=== PATIENT | female | born 1940 | race Caucasian/White ===

== ENCOUNTER 2021-08-17 08:15 | Emergency (ER) | payer MEDICARE, OTHER ==
[2021-08-17] MEDS: Albuterol/Ipratropium 3.0-0.5 MG/3 ML Neb Soln NEB ONE (08:31)
[2021-08-17 08:43] LABS: BASE EXCESS ARTERIAL 2.9 (-2.0-3.0); BICARBONATE,ARTERIAL 23.8 mm/L (22.0-26.0); O2 DELIVERY DEVICE NASAL CANNULA; O2 SATURATION ARTERIAL 87 % (95-98); PCO2 ARTERIAL 51 mm/Hg0 (35-45); PO2 ARTERIAL 60 mm/Hg (80-100)
[2021-08-17] MEDS ORDERED: Sodium Chloride 0.9% 10 ML Syringe FLUSH PRN (09:18)
[2021-08-17] MEDS: Furosemide 40 MG/4 ML VIAL IVPUSH ONE (09:28)
== END 2021-08-17 10:30 ==
LOC: CC.ED 08:15
DX: J44.9 Chronic obstructive pulmonary disease, unspecified (principal); I50.9 Heart failure, unspecified; Z20.822 Contact with and (suspected) exposure to COVID-19; Z72.0 Tobacco use; Z79.01 Long term (current) use of anticoagulants; Z79.899 Other long term (current) drug therapy; Z79.82 Long term (current) use of aspirin
CPT/HCPCS: 36415; 36600; 71045; 80053; 82803; 83605; 83735; 83880; 84484; 85025; 85379; 85610; 93005; 93010; 94640; 96374; 99284; 99285-25; J1940; J7620-GY; U0002

== ENCOUNTER 2022-05-30 19:15 | Inpatient (IN) | payer MEDICARE, OTHER ==
[2022-05-30] MEDS ORDERED: Sodium Chloride 0.9% 10 ML Syringe FLUSH PRN (19:31)
[2022-05-30] MEDS ORDERED: Albuterol/Ipratropium 3.0-0.5 MG/3 ML Neb Soln NEB ONE (19:40)
[2022-05-30 20:14] LABS: CHLORIDE,CL 104 mEq/L (98-106); SODIUM,NA 138 mEq/L (136-145)
[2022-05-30 20:17] LABS: ESTIMATED GFR 32 mL/min (>=60)
[2022-05-30] MEDS ORDERED: Ondansetron 4 MG/2 ML SDV IV PRN (21:30)
[2022-05-30] MEDS ORDERED: Acetaminophen 325 MG Tab PO PRN (21:30)
[2022-05-30] MEDS ORDERED: Warfarin 5 MG Tab PO ONE (21:34)
[2022-05-30] MEDS: cefTRIAXone 1 GM Vial IVPUSH SCH (22:02)
[2022-05-30] MEDS: Sodium Chloride 0.9% 1,000 ML IV SCH (22:04)
[2022-05-30] MEDS: Azithromycin 500 MG in Sodium Chloride 0.9% 250 ML IV SCH (22:06)
[2022-05-31] MEDS: Albuterol/Ipratropium 3.0-0.5 MG/3 ML Neb Soln NEB PRN ×4 (01:00→20:50)
[2022-05-31] MEDS ORDERED: guaiFENesin 100 MG/5 ML Soln 5 ML UD Cup PO ONE (02:44)
[2022-05-31] MEDS: guaiFENesin 200 MG Tab PO SCH ×3 (07:40→19:29)
[2022-05-31] MEDS ORDERED: Diltiazem 120 MG Cap.CD PO SCH (10:45)
[2022-05-31] MEDS ORDERED: methylPREDNISolone Sodium Succinate 125 MG/2 ML SDV IVPUSH ONE (10:51)
[2022-05-31] MEDS ORDERED: Calcium Carbonate 500 MG Tab.Chew PO ONE ×2 (10:52→11:30)
[2022-05-31] MEDS: Topiramate 100 MG Tab PO SCH ×2 (11:04→19:29)
[2022-05-31] MEDS: Torsemide 20 MG Tab PO SCH (11:05)
[2022-05-31] MEDS: Multivitamins with Iron/Calcium/Folic Acid/Minerals Tab PO SCH (11:05)
[2022-05-31] MEDS: Isosorbide Mononitrate 30 MG Tab.ER PO SCH (11:08)
[2022-05-31] MEDS: Aspirin 81 MG Tab.EC PO SCH (11:11)
[2022-05-31] MEDS: atorvaSTATin 20 MG Tab PO SCH (11:11)
[2022-05-31] MEDS: Sodium Bicarbonate 650 MG Tab PO SCH ×2 (13:30→19:29)
[2022-05-31] MEDS: BIOTIN 5000 MCG PO SCH (16:10)
[2022-05-31] MEDS: PROPRANOLOL 80 MG PO SCH ×2 (16:11→21:13)
[2022-05-31] MEDS: Sodium Chloride 0.9% 1,000 ML IV SCH (18:03)
[2022-05-31] MEDS: Primidone 50 MG Tab PO SCH (19:29)
[2022-05-31] MEDS: cefTRIAXone 1 GM Vial IVPUSH SCH (20:48)
[2022-05-31] MEDS: Azithromycin 500 MG in Sodium Chloride 0.9% 250 ML IV SCH (20:48)
[2022-05-31] MEDS: Diltiazem IR 30 MG Tab PO PRN ×2 (21:59→23:01)
[2022-06-01] MEDS: Diltiazem IR 30 MG Tab PO PRN (00:15)
[2022-06-01] MEDS: BIOTIN 5000 MCG PO SCH (07:55)
[2022-06-01] MEDS: Topiramate 100 MG Tab PO SCH ×2 (07:56→20:36)
[2022-06-01] MEDS: Diltiazem 180 MG Cap.CD PO SCH (07:56)
[2022-06-01] MEDS: Primidone 50 MG Tab PO SCH ×2 (07:57→20:31)
[2022-06-01] MEDS: Torsemide 20 MG Tab PO SCH (07:58)
[2022-06-01] MEDS: guaiFENesin 200 MG Tab PO SCH ×3 (07:58→20:31)
[2022-06-01] MEDS: Isosorbide Mononitrate 30 MG Tab.ER PO SCH (07:58)
[2022-06-01] MEDS: Aspirin 81 MG Tab.EC PO SCH (07:59)
[2022-06-01] MEDS: atorvaSTATin 20 MG Tab PO SCH (07:59)
[2022-06-01] MEDS: Albuterol/Ipratropium 3.0-0.5 MG/3 ML Neb Soln NEB PRN ×3 (07:59→21:59)
[2022-06-01] MEDS: Multivitamins with Iron/Calcium/Folic Acid/Minerals Tab PO SCH (07:59)
[2022-06-01] MEDS: Sodium Bicarbonate 650 MG Tab PO SCH ×3 (08:00→20:36)
[2022-06-01] MEDS: PROPRANOLOL 80 MG PO SCH ×3 (08:00→20:42)
[2022-06-01] MEDS ORDERED: Calcium Carbonate 500 MG Tab.Chew PO ONE (10:54)
[2022-06-01] MEDS: Warfarin 5 MG Tab PO SCH (11:41)
[2022-06-01] MEDS: Sodium Chloride 0.9% 1,000 ML IV SCH (15:50)
[2022-06-01] MEDS ORDERED: cefTRIAXone 1 GM Vial IVPUSH SCH (20:00)
[2022-06-01] MEDS ORDERED: Azithromycin 500 MG in Sodium Chloride 0.9% 250 ML IV SCH (20:00)
[2022-06-02] MEDS: Albuterol/Ipratropium 3.0-0.5 MG/3 ML Neb Soln NEB PRN (08:13)
[2022-06-02] MEDS: Primidone 50 MG Tab PO SCH ×2 (08:14→19:28)
[2022-06-02] MEDS: Topiramate 100 MG Tab PO SCH ×2 (08:15→19:28)
[2022-06-02] MEDS: Diltiazem 180 MG Cap.CD PO SCH (08:15)
[2022-06-02] MEDS: Aspirin 81 MG Tab.EC PO SCH (08:15)
[2022-06-02] MEDS: Multivitamins with Iron/Calcium/Folic Acid/Minerals Tab PO SCH (08:16)
[2022-06-02] MEDS: Torsemide 20 MG Tab PO SCH (08:16)
[2022-06-02] MEDS: Isosorbide Mononitrate 30 MG Tab.ER PO SCH (08:16)
[2022-06-02] MEDS: Sodium Bicarbonate 650 MG Tab PO SCH ×3 (08:17→19:27)
[2022-06-02] MEDS: atorvaSTATin 20 MG Tab PO SCH (08:17)
[2022-06-02] MEDS: guaiFENesin 200 MG Tab PO SCH ×3 (08:17→19:27)
[2022-06-02] MEDS: PROPRANOLOL 80 MG PO SCH ×3 (08:19→19:30)
[2022-06-02] MEDS: BIOTIN 5000 MCG PO SCH (08:19)
[2022-06-02] MEDS ORDERED: Loperamide 2 MG Cap PO ONE (11:05)
[2022-06-02] MEDS: Warfarin 5 MG Tab PO SCH (11:46)
[2022-06-03] MEDS: Primidone 50 MG Tab PO SCH ×2 (07:57→20:03)
[2022-06-03] MEDS: Topiramate 100 MG Tab PO SCH ×2 (07:58→20:03)
[2022-06-03] MEDS: atorvaSTATin 20 MG Tab PO SCH (07:59)
[2022-06-03] MEDS: Sodium Bicarbonate 650 MG Tab PO SCH ×3 (07:59→20:03)
[2022-06-03] MEDS: guaiFENesin 200 MG Tab PO SCH (07:59)
[2022-06-03] MEDS: Aspirin 81 MG Tab.EC PO SCH (07:59)
[2022-06-03] MEDS: Isosorbide Mononitrate 30 MG Tab.ER PO SCH (08:00)
[2022-06-03] MEDS: Torsemide 20 MG Tab PO SCH (08:01)
[2022-06-03] MEDS: Diltiazem 180 MG Cap.CD PO SCH (08:01)
[2022-06-03] MEDS: PROPRANOLOL 80 MG PO SCH ×3 (08:02→20:11)
[2022-06-03] MEDS: Multivitamins with Iron/Calcium/Folic Acid/Minerals Tab PO SCH (08:02)
[2022-06-03] MEDS: BIOTIN 5000 MCG PO SCH (08:07)
[2022-06-03] MEDS ORDERED: Loperamide 2 MG Cap PO PRN (09:55)
[2022-06-03] MEDS: Warfarin 5 MG Tab PO SCH (11:34)
[2022-06-03] MEDS ORDERED: Furosemide 20 MG/2 ML VIAL IVPUSH ONE (13:29)
[2022-06-03] MEDS: guaiFENesin/Dextromethorphan 100-10 MG/5 ML Soln 5 ML Cup PO PRN ×2 (13:35→20:16)
[2022-06-04] MEDS: Primidone 50 MG Tab PO SCH ×2 (07:17→19:46)
[2022-06-04] MEDS: Torsemide 20 MG Tab PO SCH (07:18)
[2022-06-04] MEDS: Multivitamins with Iron/Calcium/Folic Acid/Minerals Tab PO SCH (07:19)
[2022-06-04] MEDS: Sodium Bicarbonate 650 MG Tab PO SCH ×3 (07:19→19:45)
[2022-06-04] MEDS: Diltiazem 180 MG Cap.CD PO SCH (07:19)
[2022-06-04] MEDS: atorvaSTATin 20 MG Tab PO SCH (07:19)
[2022-06-04] MEDS: Topiramate 100 MG Tab PO SCH ×2 (07:19→19:46)
[2022-06-04] MEDS: Isosorbide Mononitrate 30 MG Tab.ER PO SCH (07:20)
[2022-06-04] MEDS: Aspirin 81 MG Tab.EC PO SCH (07:20)
[2022-06-04] MEDS: BIOTIN 5000 MCG PO SCH (07:28)
[2022-06-04] MEDS: PROPRANOLOL 80 MG PO SCH ×3 (07:28→19:50)
[2022-06-04] MEDS: Warfarin 5 MG Tab PO SCH (11:37)
[2022-06-04] MEDS ORDERED: Furosemide 20 MG/2 ML VIAL IVPUSH ONE (13:09)
[2022-06-04] MEDS: Diltiazem IR 30 MG Tab PO PRN (19:46)
[2022-06-05] MEDS: Primidone 50 MG Tab PO SCH (07:58)
[2022-06-05] MEDS: Torsemide 20 MG Tab PO SCH (07:58)
[2022-06-05] MEDS: Topiramate 100 MG Tab PO SCH (08:00)
[2022-06-05] MEDS: Multivitamins with Iron/Calcium/Folic Acid/Minerals Tab PO SCH (08:00)
[2022-06-05] MEDS: Diltiazem 180 MG Cap.CD PO SCH (08:01)
[2022-06-05] MEDS: Sodium Bicarbonate 650 MG Tab PO SCH ×2 (08:03→14:09)
[2022-06-05] MEDS: atorvaSTATin 20 MG Tab PO SCH (08:03)
[2022-06-05] MEDS: Aspirin 81 MG Tab.EC PO SCH (08:03)
[2022-06-05] MEDS: Isosorbide Mononitrate 30 MG Tab.ER PO SCH (08:04)
[2022-06-05] MEDS: PROPRANOLOL 80 MG PO SCH ×2 (08:05→14:11)
[2022-06-05] MEDS: BIOTIN 5000 MCG PO SCH (08:06)
[2022-06-05] MEDS: Warfarin 5 MG Tab PO SCH (11:26)
== END 2022-06-05 15:45 | disposition home or self-care (01) | DRG 292 ==
LOC: CC.ED 19:15 → CC.MS 20:34 → UNDOADMIN 20:45 → CC.MS 20:45
PROVIDERS: ADMIT Nurse Practitioner Family; ATTEND Nurse Practitioner Family
DX: I13.0 Hypertensive heart and chronic kidney disease with heart failure and stage 1 through stage 4 chronic kidney disease, or unspecified chronic kidney disease (principal); I50.1 Left ventricular failure, unspecified; N18.4 Chronic kidney disease, stage 4 (severe); J44.1 Chronic obstructive pulmonary disease with (acute) exacerbation; I49.8 Other specified cardiac arrhythmias; R09.02 Hypoxemia; Z20.822 Contact with and (suspected) exposure to COVID-19; H54.7 Unspecified visual loss; M19.90 Unspecified osteoarthritis, unspecified site; R00.0 Tachycardia, unspecified; E11.9 Type 2 diabetes mellitus without complications; I10 Essential (primary) hypertension; F17.210 Nicotine dependence, cigarettes, uncomplicated; E78.00 Pure hypercholesterolemia, unspecified; K52.9 Noninfective gastroenteritis and colitis, unspecified; Z79.01 Long term (current) use of anticoagulants; Z79.84 Long term (current) use of oral hypoglycemic drugs; Z87.440 Personal history of urinary (tract) infections; Z98.890 Other specified postprocedural states; Z98.49 Cataract extraction status, unspecified eye; Z79.82 Long term (current) use of aspirin; Z79.899 Other long term (current) drug therapy; Z95.0 Presence of cardiac pacemaker; Z87.442 Personal history of urinary calculi
CPT/HCPCS: 36415; 71045; 71046; 80053; 82947; 83605; 83735; 83880; 84484; 85025; 85610; 87804; 93005; 93010; 94640; 99223; 99232; 99233; 99239; 99285; A9270-GY; J0456; J0696; J1940; J2930; J7030; J7050; J7620-GY; U0002

== ENCOUNTER 2022-09-13 20:35 | Emergency (ER) | payer MEDICARE, OTHER ==
[2022-09-13] MEDS: Albuterol/Ipratropium 3.0-0.5 MG/3 ML Neb Soln NEB ONE ×3 (20:56→22:15)
[2022-09-13 21:29] LABS: CORONAVIRUS COVID-19 NAA NEGATIVE (NEGATIVE); RESPIRATORY SYNCYTIAL VIR NAA NEGATIVE (NEGATIVE)
[2022-09-13 21:46] LABS: PTT,PARTIAL THROMBOPLSTIN TIME 30.6 SEC (20.0-30.0)
[2022-09-13] MEDS: LORazepam 2 MG/ML Syringe IVPUSH PRN (22:00)
[2022-09-13] MEDS ORDERED: Albuterol/Ipratropium 3.0-0.5 MG/3 ML Neb Soln ONE (22:15)
[2022-09-13] MEDS: Furosemide 40 MG/4 ML VIAL IVPUSH ONE (22:45)
[2022-09-13] MEDS ORDERED: Nitroglycerin 0.4 MG Tab.SL SL PRN (22:54)
[2022-09-13] MEDS: Budesonide 0.5 MG/2 ML Neb Susp NEB ONE (23:07)
[2022-09-13] MEDS: methylPREDNISolone Sodium Succinate 40 MG/1 ML SDV IVPUSH ONE (23:14)
[2022-09-13] MEDS: hydrALAZINE 20 MG/ML SDV IVPUSH ONE (23:14)
[2022-09-13] MEDS ORDERED: Sodium Chloride 0.9% 500 ML IV SCH (23:45)
[2022-09-15] MEDS: methylPREDNISolone Sodium Succinate 40 MG/1 ML SDV ONE (13:03)
== END 2022-09-14 00:35 ==
LOC: CC.ED 20:35
DX: J96.01 Acute respiratory failure with hypoxia (principal); J44.1 Chronic obstructive pulmonary disease with (acute) exacerbation; I11.0 Hypertensive heart disease with heart failure; I50.9 Heart failure, unspecified; E78.00 Pure hypercholesterolemia, unspecified; M19.90 Unspecified osteoarthritis, unspecified site; E11.9 Type 2 diabetes mellitus without complications; F17.210 Nicotine dependence, cigarettes, uncomplicated; Z79.899 Other long term (current) drug therapy; Z79.01 Long term (current) use of anticoagulants; Z20.822 Contact with and (suspected) exposure to COVID-19
CPT/HCPCS: 0241U; 36415; 51702; 70450; 71046; 80053; 81001; 84484; 85025; 85610; 85730; 93005; 93010; 94640; 96374; 96375; 99284; 99285; J0360; J1940; J2060; J2920; J3490; J7620-GY

== ENCOUNTER 2023-02-26 07:29 | Inpatient (IN) | payer MEDICARE, OTHER ==
[2023-02-26 07:47] LABS: BASOPHILS ABSOLUTE AUTO 0.05 10^3/uL (0.00-0.50); BASOPHILS PERCENT AUTO 0.5 % (0-1); EOSINOPHILS ABSOLUTE AUTO 0.14 10^3/uL (0.00-1.50); EOSINOPHILS PERCENT AUTO 1.5 % (0-6); HEMATOCRIT 39.9 % (37.0-47.0); HEMOGLOBIN 12.9 g/dL (12.0-16.0); IMMATURE GRAN ABSOLUTE AUTO 0.01 10^3/uL (0.00-0.49); IMMATURE GRAN PERCENT AUTO 0.1 % (0.0-4.9); LYMPHOCYTES ABSOLUTE AUTO 2.09 10^3/uL (0.60-5.00); LYMPHOCYTES PERCENT AUTO 21.7 % (24-44); MEAN CORPUSCULAR HEMOGLOBIN 31.9 pg (27.0-32.0); MEAN CORPUSCULAR HGB CONC 32.3 g/dL (32.0-36.0); MEAN CORPUSCULAR VOLUME 98.8 fL (83.0-97.0); MONOCYTES ABSOLUTE AUTO 1.12 10^3/uL (0.00-1.50); MONOCYTES PERCENT AUTO 11.6 % (0-10); NEUTROPHILS ABSOLUTE AUTO 6.24 x10^3/uL (1.80-8.00); NEUTROPHILS PERCENT AUTO 64.6 % (41-71); PLATELET COUNT,PLT 116 10^3/uL (150-400); RED BLOOD CELL COUNT 4.04 x10^6/uL (4.00-5.50); WHITE BLOOD CELL COUNT,WBC 9.7 10^3/uL (4.0-11.0)
[2023-02-26 07:57] LABS: APPEARANCE,URINE CLEAR (CLEAR); BILIRUBIN,URINE NEGATIVE (NEGATIVE); COLOR,URINE YELLOW (YELLOW); GLUCOSE,URINE NEGATIVE (NEGATIVE); KETONES,URINE NEGATIVE (NEGATIVE); LEUKOCYTE ESTERASE,URINE SMALL (NEGATIVE); NITRITE,URINE NEGATIVE (NEGATIVE); OCCULT BLOOD,URINE NEGATIVE (NEGATIVE); PH,URINE 7.5 (4.5-8.0); PROTEIN,URINE NEGATIVE (NEGATIVE); UROBILINOGEN,URINE 0.2 EU/dL (0.2-1.0)
[2023-02-26 08:01] LABS: HEMOGLOBIN A1C 7.3 % (4.8-5.6)
[2023-02-26 08:12] LABS: BACTERIA,URINE OCCASIONAL /HPF (NOT SEEN); RBC,URINE 0-5 /HPF (0-5); SQUAMOUS EPITHELIAL CELLS,UR FEW /HPF (NOT SEEN); WBC,URINE 0-5 /HPF (0-5); YEAST,URINE OCCASIONAL /HPF (NOT SEEN)
[2023-02-26 08:28] LABS: ALANINE AMINOTRANSFERASE,ALT 51 U/L (12-78); ALBUMIN 3.4 g/dL (3.4-5.0); ALKALINE PHOSPHATASE 106 U/L (46-116); ASPARTATE AMNIOTRANSFERASE,AST 30 U/L (15-37); BILIRUBIN TOTAL 0.3 mg/dL (0.0-1.0); BLOOD UREA NITROGEN,BUN 62 mg/dL (7-18); CALCIUM 9.5 mg/dL (8.4-10.1); CARBON DIOXIDE,CO2 31 mmol/L (21-32); CHLORIDE,CL 98 mEq/L (98-106); CHOLESTEROL HDL 65 mg/dL (60-90); CHOLESTEROL LDL CALCULATED 99 mg/dL (0-99); CHOLESTEROL TOTAL 197 mg/dL (0-199); GLUCOSE RANDOM 113 mg/dL (75-99); POTASSIUM,K 5.3 mEq/L (3.5-5.0); PROTEIN TOTAL,TP 8.2 g/dL (6.4-8.2); SODIUM,NA 137 mEq/L (136-145); TRIGLYCERIDES 164 mg/dL (30-150); TSH ULTRASENSITIVE 1.96 uIU/mL (0.36-5.60)
[2023-02-26 08:30] LABS: CREATININE 3.7 mg/dL (0.6-1.0); ESTIMATED GFR 12 mL/min (>=60)
[2023-02-26] MEDS ORDERED: Sodium Chloride 0.9% 10 ML Syringe FLUSH PRN (11:20)
[2023-02-26] MEDS ORDERED: Ondansetron 4 MG Tab.DIS PO PRN (11:20)
[2023-02-26] MEDS ORDERED: Polyethylene Glycol 3350 Powder 17 GM Packet PO PRN (11:20)
[2023-02-26] MEDS ORDERED: Docusate Sodium 100 MG Cap PO PRN (11:20)
[2023-02-26] MEDS ORDERED: Acetaminophen 325 MG Tab PO PRN (11:20)
[2023-02-26] MEDS ORDERED: Ondansetron 4 MG/2 ML SDV IV PRN (11:20)
[2023-02-26] MEDS ORDERED: Albuterol 6.7 GM Inhaler INH PRN (11:26)
[2023-02-26] MEDS ORDERED: Diltiazem IR 30 MG Tab PO PRN (11:26)
[2023-02-26 11:53] LABS: INR 2.36 (0.92-1.18); PROTHROMBIN TIME 23.7 SEC (9.3-11.3)
[2023-02-26] MEDS ORDERED: 50% Dextrose in Water 50 ML Syringe IVPUSH PRN (13:00)
[2023-02-26] MEDS ORDERED: Glucagon,Human Recombinant 1 MG Vial IM PRN (13:00)
[2023-02-26] MEDS: Isosorbide Mononitrate 30 MG Tab.ER PO SCH (13:03)
[2023-02-26] MEDS: Warfarin 5 MG Tab PO SCH (13:03)
[2023-02-26] MEDS: Topiramate 100 MG Tab PO SCH ×2 (13:04→19:38)
[2023-02-26] MEDS: Diltiazem 180 MG Cap.CD PO SCH (13:04)
[2023-02-26] MEDS: Sodium Chloride 0.9% 1,000 ML IV SCH (13:06)
[2023-02-26] MEDS ORDERED: Oxyquinoline/Emollient 0.3% Oint 4 OZ Canister TOP PRN (13:21)
[2023-02-26] MEDS: Sodium Bicarbonate 650 MG Tab PO SCH ×2 (14:08→19:37)
[2023-02-26] MEDS: Propranolol 10 MG Tab PO SCH ×2 (14:08→19:37)
[2023-02-26] MEDS: Insulin Lispro 100 Units/ML 3 ML Vial SUBCUT SCH ×2 (17:30→20:55)
[2023-02-26] MEDS: Calcium Carbonate/Vitamin D3 1250 MG-5 MCG Tab PO SCH (17:30)
[2023-02-26] MEDS: Primidone 50 MG Tab PO SCH (19:38)
[2023-02-27 07:19] LABS: BASOPHILS ABSOLUTE AUTO 0.06 10^3/uL (0.00-0.50); BASOPHILS PERCENT AUTO 0.7 % (0-1); EOSINOPHILS ABSOLUTE AUTO 0.11 10^3/uL (0.00-1.50); EOSINOPHILS PERCENT AUTO 1.4 % (0-6); HEMATOCRIT 36.2 % (37.0-47.0); HEMOGLOBIN 11.7 g/dL (12.0-16.0); IMMATURE GRAN ABSOLUTE AUTO 0.01 10^3/uL (0.00-0.49); IMMATURE GRAN PERCENT AUTO 0.1 % (0.0-4.9); LYMPHOCYTES ABSOLUTE AUTO 1.55 10^3/uL (0.60-5.00); LYMPHOCYTES PERCENT AUTO 19.2 % (24-44); MEAN CORPUSCULAR HEMOGLOBIN 32.4 pg (27.0-32.0); MEAN CORPUSCULAR HGB CONC 32.3 g/dL (32.0-36.0); MEAN CORPUSCULAR VOLUME 100.3 fL (83.0-97.0); MONOCYTES ABSOLUTE AUTO 1.08 10^3/uL (0.00-1.50); MONOCYTES PERCENT AUTO 13.4 % (0-10); NEUTROPHILS ABSOLUTE AUTO 5.25 x10^3/uL (1.80-8.00); NEUTROPHILS PERCENT AUTO 65.2 % (41-71); PLATELET COUNT,PLT 172 10^3/uL (150-400); RED BLOOD CELL COUNT 3.61 x10^6/uL (4.00-5.50); WHITE BLOOD CELL COUNT,WBC 8.1 10^3/uL (4.0-11.0)
[2023-02-27 07:25] LABS: CREATININE 2.5 mg/dL (0.6-1.0); EST CRCL DRUG DOSING (CG) 13.32 mL/min; MAGNESIUM 2.4 mg/dL (1.8-2.4); POTASSIUM,K 4.5 mEq/L (3.5-5.0)
[2023-02-27] MEDS: Sodium Chloride 0.9% 1,000 ML IV SCH (07:51)
[2023-02-27] MEDS ORDERED: BIOTIN 1000 MCG PO SCH (08:00)
[2023-02-27] MEDS ORDERED: TOPIRAMATE 50 MG PO SCH (08:00)
[2023-02-27] MEDS ORDERED: [UNRECOGNIZED DRUG - OTHER] PO SCH (08:00)
[2023-02-27] MEDS: Calcium Carbonate/Vitamin D3 1250 MG-5 MCG Tab PO SCH ×2 (08:01→17:05)
[2023-02-27] MEDS: Diltiazem 180 MG Cap.CD PO SCH (08:02)
[2023-02-27] MEDS: Aspirin 81 MG Tab.EC PO SCH (08:02)
[2023-02-27] MEDS: Isosorbide Mononitrate 30 MG Tab.ER PO SCH (08:02)
[2023-02-27] MEDS: Primidone 50 MG Tab PO SCH ×2 (08:03→20:14)
[2023-02-27] MEDS: Propranolol 10 MG Tab PO SCH ×3 (08:03→20:14)
[2023-02-27] MEDS: Multivitamin Tab PO SCH (08:04)
[2023-02-27] MEDS: Topiramate 100 MG Tab PO SCH ×2 (08:04→20:14)
[2023-02-27] MEDS: Sodium Bicarbonate 650 MG Tab PO SCH ×3 (08:04→20:13)
[2023-02-27] MEDS: Insulin Lispro 100 Units/ML 3 ML Vial SUBCUT SCH ×4 (08:08→20:32)
[2023-02-27] MEDS: Warfarin 5 MG Tab PO SCH (08:26)
[2023-02-27] MEDS: Torsemide 20 MG Tab PO SCH (09:24)
[2023-02-27] MEDS ORDERED: Diltiazem 180 MG Cap.CD PO SCH (12:45)
[2023-02-27] MEDS ORDERED: Isosorbide Mononitrate 30 MG Tab.ER PO SCH (12:45)
[2023-02-27] MEDS ORDERED: atorvaSTATin 20 MG Tab PO SCH (20:00)
[2023-02-28] MEDS: Sodium Chloride 0.9% 1,000 ML IV SCH (03:51)
[2023-02-28 07:32] LABS: BASOPHILS ABSOLUTE AUTO 0.03 10^3/uL (0.00-0.50); BASOPHILS PERCENT AUTO 0.4 % (0-1); EOSINOPHILS ABSOLUTE AUTO 0.16 10^3/uL (0.00-1.50); EOSINOPHILS PERCENT AUTO 1.9 % (0-6); HEMATOCRIT 36.6 % (37.0-47.0); HEMOGLOBIN 11.7 g/dL (12.0-16.0); IMMATURE GRAN ABSOLUTE AUTO 0.01 10^3/uL (0.00-0.49); IMMATURE GRAN PERCENT AUTO 0.1 % (0.0-4.9); LYMPHOCYTES ABSOLUTE AUTO 1.62 10^3/uL (0.60-5.00); LYMPHOCYTES PERCENT AUTO 19.3 % (24-44); MEAN CORPUSCULAR HEMOGLOBIN 32.2 pg (27.0-32.0); MEAN CORPUSCULAR VOLUME 100.8 fL (83.0-97.0); MONOCYTES ABSOLUTE AUTO 0.84 10^3/uL (0.00-1.50); NEUTROPHILS ABSOLUTE AUTO 5.74 x10^3/uL (1.80-8.00); NEUTROPHILS PERCENT AUTO 68.3 % (41-71); PLATELET COUNT,PLT 198 10^3/uL (150-400); RED BLOOD CELL COUNT 3.63 x10^6/uL (4.00-5.50); WHITE BLOOD CELL COUNT,WBC 8.4 10^3/uL (4.0-11.0)
[2023-02-28] MEDS: Warfarin 5 MG Tab PO SCH (07:32)
[2023-02-28] MEDS: Diltiazem 180 MG Cap.CD PO SCH (07:32)
[2023-02-28] MEDS: Calcium Carbonate/Vitamin D3 1250 MG-5 MCG Tab PO SCH (07:32)
[2023-02-28] MEDS: Torsemide 20 MG Tab PO SCH (07:33)
[2023-02-28 07:34] LABS: CREATININE 2.1 mg/dL (0.6-1.0); EST CRCL DRUG DOSING (CG) 15.85 mL/min; POTASSIUM,K 4.1 mEq/L (3.5-5.0)
[2023-02-28] MEDS: Isosorbide Mononitrate 30 MG Tab.ER PO SCH (07:34)
[2023-02-28] MEDS: Aspirin 81 MG Tab.EC PO SCH (07:34)
[2023-02-28] MEDS: Topiramate 100 MG Tab PO SCH (07:35)
[2023-02-28] MEDS: Propranolol 10 MG Tab PO SCH (07:35)
[2023-02-28] MEDS: Sodium Bicarbonate 650 MG Tab PO SCH (07:36)
[2023-02-28] MEDS: Primidone 50 MG Tab PO SCH (07:36)
[2023-02-28] MEDS: Multivitamin Tab PO SCH (07:37)
[2023-02-28] MEDS: Insulin Lispro 100 Units/ML 3 ML Vial SUBCUT SCH (07:48)
[2023-02-28] MEDS ORDERED: FLUTICASONE INH SCH (08:00)
[2023-02-28] MEDS ORDERED: VILANTER INH SCH (08:00)
[2023-02-28] MEDS ORDERED: UMECLIDIN INH SCH (08:00)
== END 2023-02-28 10:20 | disposition home or self-care (01) | DRG 683 ==
LOC: CC.MS 07:29 → CC.FCMC 07:29 → CC.MS 10:44 → UNDOADMIN 10:44 → CC.MS 11:20
PROVIDERS: ADMIT Physician Assistant Medical; ATTEND Nurse Practitioner Family
DX: N17.9 Acute kidney failure, unspecified (principal); I13.0 Hypertensive heart and chronic kidney disease with heart failure and stage 1 through stage 4 chronic kidney disease, or unspecified chronic kidney disease; I50.9 Heart failure, unspecified; E87.5 Hyperkalemia; E11.22 Type 2 diabetes mellitus with diabetic chronic kidney disease; N18.9 Chronic kidney disease, unspecified; J44.9 Chronic obstructive pulmonary disease, unspecified; E78.00 Pure hypercholesterolemia, unspecified; M19.90 Unspecified osteoarthritis, unspecified site; I48.91 Unspecified atrial fibrillation; Z79.01 Long term (current) use of anticoagulants; Z79.82 Long term (current) use of aspirin; Z79.84 Long term (current) use of oral hypoglycemic drugs; Z79.899 Other long term (current) drug therapy; Z95.0 Presence of cardiac pacemaker; Z87.442 Personal history of urinary calculi; Z87.440 Personal history of urinary (tract) infections; Z98.49 Cataract extraction status, unspecified eye; Z98.890 Other specified postprocedural states; Z90.710 Acquired absence of both cervix and uterus
CPT/HCPCS: 36415; 71046; 80048; 80053; 80061; 81001; 82947; 83036; 83735; 83880; 84443; 85025; 85610; A9270-GY; J1815-GY; J7030

== ENCOUNTER 2024-01-05 11:07 | Inpatient (IN) | payer MEDICARE, OTHER ==
[2024-01-05 11:26] LABS: BASOPHILS ABSOLUTE AUTO 0.03 10^3/uL (0.00-0.50); BASOPHILS PERCENT AUTO 0.2 % (0-1); EOSINOPHILS ABSOLUTE AUTO 0.02 10^3/uL (0.00-1.50); EOSINOPHILS PERCENT AUTO 0.1 % (0-6); HEMATOCRIT 20.7 % (37.0-47.0); IMMATURE GRAN ABSOLUTE AUTO 0.08 10^3/uL (0.00-0.49); IMMATURE GRAN PERCENT AUTO 0.5 % (0.0-4.9); LYMPHOCYTES PERCENT AUTO 4.6 % (24-44); MEAN CORPUSCULAR HGB CONC 30.9 g/dL (32.0-36.0); MEAN CORPUSCULAR VOLUME 110.1 fL (83.0-97.0); MONOCYTES ABSOLUTE AUTO 1.01 10^3/uL (0.00-1.50); MONOCYTES PERCENT AUTO 5.8 % (0-10); NEUTROPHILS ABSOLUTE AUTO 15.45 x10^3/uL (1.80-8.00); NEUTROPHILS PERCENT AUTO 88.8 % (41-71); PLATELET COUNT,PLT 262 10^3/uL (150-400); RED BLOOD CELL COUNT 1.88 x10^6/uL (4.00-5.50); WHITE BLOOD CELL COUNT,WBC 17.4 10^3/uL (4.0-11.0)
[2024-01-05 11:30] LABS: HEMOGLOBIN 6.4 g/dL (12.0-16.0)
[2024-01-05 11:38] LABS: PROTHROMBIN TIME 61.7 SEC (9.3-11.3); PTT,PARTIAL THROMBOPLSTIN TIME 37.2 SEC (20.0-30.0)
[2024-01-05 11:41] LABS: INR 6.42 (0.92-1.18)
[2024-01-05 11:45] LABS: ALBUMIN 2.7 g/dL (3.4-5.0); BILIRUBIN TOTAL 0.3 mg/dL (0.0-1.0); CALCIUM 9.6 mg/dL (8.4-10.1); EST CRCL DRUG DOSING (CG) 9.16 mL/min; POTASSIUM,K 4.9 mEq/L (3.5-5.0); PROTEIN TOTAL,TP 6.4 g/dL (6.4-8.2)
[2024-01-05 11:46] LABS: CREATININE 3.4 mg/dL (0.6-1.0)
[2024-01-05] MEDS: Sodium Chloride 0.9% 1,000 ML IV SCH (12:04)
[2024-01-05] MEDS: Acetaminophen/oxyCODONE 325-5 MG Tab PO ONE (12:46)
[2024-01-05] MEDS: Phytonadione 5 MG Tab PO ONE ×2 (12:47)
[2024-01-05] MEDS ORDERED: Sodium Chloride 0.9% 250 ML IV SCH (13:00)
[2024-01-05] MEDS ORDERED: Acetaminophen 325 MG Tab PO PRN (13:47)
[2024-01-05] MEDS ORDERED: Ondansetron 4 MG Tab.DIS PO PRN (13:47)
[2024-01-05] MEDS ORDERED: Ondansetron 4 MG/2 ML SDV IV PRN (13:47)
[2024-01-05 14:42] LABS: APPEARANCE,URINE CLEAR (CLEAR); BILIRUBIN,URINE NEGATIVE (NEGATIVE); COLOR,URINE YELLOW (YELLOW); GLUCOSE,URINE NEGATIVE (NEGATIVE); KETONES,URINE NEGATIVE (NEGATIVE); LEUKOCYTE ESTERASE,URINE SMALL (NEGATIVE); NITRITE,URINE NEGATIVE (NEGATIVE); OCCULT BLOOD,URINE TRACE-INTACT (NEGATIVE); PH,URINE 5.5 (4.5-8.0); PROTEIN,URINE NEGATIVE (NEGATIVE); UROBILINOGEN,URINE 0.2 EU/dL (0.2-1.0)
[2024-01-05] MEDS ORDERED: Albuterol/Ipratropium 3.0-0.5 MG/3 ML Neb Soln INH PRN (14:48)
[2024-01-05 14:50] LABS: BACTERIA,URINE OCCASIONAL /HPF (NOT SEEN); EPITHELIAL CELLS,URINE FEW /HPF (NOT SEEN); MUCUS,URINE OCCASIONAL /HPF (NOT SEEN); RBC,URINE 0-5 /HPF (0-5)
[2024-01-05] MEDS: Torsemide 20 MG Tab PO SCH (15:50)
[2024-01-05] MEDS: Pantoprazole 40 MG Vial IVPUSH ONE (15:50)
[2024-01-05 20:07] LABS: HEMATOCRIT 25.4 % (37.0-47.0); HEMOGLOBIN 7.9 g/dL (12.0-16.0)
[2024-01-05] MEDS: Propranolol 10 MG Tab PO SCH (20:07)
[2024-01-05] MEDS: Primidone 50 MG Tab PO SCH (20:10)
[2024-01-05] MEDS: Topiramate 100 MG Tab PO SCH (20:11)
[2024-01-05] MEDS: Acetaminophen/HYDROcodone 325-5 MG Tab PO PRN (21:35)
[2024-01-06 07:20] LABS: BASOPHILS ABSOLUTE AUTO 0.03 10^3/uL (0.00-0.50); BASOPHILS PERCENT AUTO 0.2 % (0-1); EOSINOPHILS ABSOLUTE AUTO 0.04 10^3/uL (0.00-1.50); EOSINOPHILS PERCENT AUTO 0.3 % (0-6); IMMATURE GRAN ABSOLUTE AUTO 0.05 10^3/uL (0.00-0.49); IMMATURE GRAN PERCENT AUTO 0.4 % (0.0-4.9); LYMPHOCYTES ABSOLUTE AUTO 0.96 10^3/uL (0.60-5.00); MEAN CORPUSCULAR HEMOGLOBIN 33.8 pg (27.0-32.0); MEAN CORPUSCULAR HGB CONC 32.2 g/dL (32.0-36.0); MONOCYTES ABSOLUTE AUTO 0.99 10^3/uL (0.00-1.50); MONOCYTES PERCENT AUTO 7.2 % (0-10); NEUTROPHILS PERCENT AUTO 84.9 % (41-71); PLATELET COUNT,PLT 382 10^3/uL (150-400); RED BLOOD CELL COUNT 2.19 x10^6/uL (4.00-5.50); WHITE BLOOD CELL COUNT,WBC 13.8 10^3/uL (4.0-11.0)
[2024-01-06] MEDS: Primidone 50 MG Tab PO SCH (07:30)
[2024-01-06] MEDS: Diltiazem 180 MG Cap.CD PO SCH (07:30)
[2024-01-06] MEDS: Torsemide 20 MG Tab PO SCH (07:31)
[2024-01-06] MEDS: Saxagliptin 2.5 MG Tab PO SCH (07:31)
[2024-01-06] MEDS: Isosorbide Mononitrate 30 MG Tab.ER PO SCH (07:32)
[2024-01-06 07:48] LABS: HEMOGLOBIN 7.4 g/dL (12.0-16.0)
[2024-01-06 07:52] LABS: INR 3.11 (0.92-1.18)
[2024-01-06] MEDS ORDERED: Non-Formulary Medication 1 Each (Fluticasone/Umeclidin/Vilanter [Trelegy Ellipta 100-62.5- INH SCH (08:00)
[2024-01-06] MEDS ORDERED: GLIMEPIRIDE 4 MG PO SCH (08:00)
[2024-01-06 08:03] LABS: ALBUMIN 2.5 g/dL (3.4-5.0); BILIRUBIN TOTAL 0.3 mg/dL (0.0-1.0); CALCIUM 8.3 mg/dL (8.4-10.1); EST CRCL DRUG DOSING (CG) 10.05 mL/min; POTASSIUM,K 4.2 mEq/L (3.5-5.0); PROTEIN TOTAL,TP 5.9 g/dL (6.4-8.2)
[2024-01-06 08:18] LABS: CREATININE 3.1 mg/dL (0.6-1.0)
[2024-01-06] MEDS ORDERED: Pantoprazole 40 MG Vial IVPUSH SCH (12:00)
[2024-01-06] MEDS ORDERED: atorvaSTATin 20 MG Tab PO SCH (20:00)
== END 2024-01-06 09:25 | disposition expired | DRG 377 ==
LOC: CC.ED 11:07 → CC.MS 12:12 → UNDOADMIN 12:24
PROVIDERS: ADMIT Physician Assistant Medical; ATTEND Physician Assistant Medical
PROC: 30233N1 Transfusion of Nonautologous Red Blood Cells into Peripheral Vein, Percutaneous Approach (ICD-10-PCS; principal; 2024-01-05)
DX: K92.1 Melena (principal); I21.4 Non-ST elevation (NSTEMI) myocardial infarction; D68.32 Hemorrhagic disorder due to extrinsic circulating anticoagulants; D62 Acute posthemorrhagic anemia; Z66 Do not resuscitate; J44.9 Chronic obstructive pulmonary disease, unspecified; T45.515A Adverse effect of anticoagulants, initial encounter; E11.9 Type 2 diabetes mellitus without complications; S40.021A Contusion of right upper arm, initial encounter; S40.022A Contusion of left upper arm, initial encounter; M19.90 Unspecified osteoarthritis, unspecified site; E78.00 Pure hypercholesterolemia, unspecified; I49.3 Ventricular premature depolarization; I10 Essential (primary) hypertension; F41.9 Anxiety disorder, unspecified; G25.81 Restless legs syndrome; H54.7 Unspecified visual loss; M25.551 Pain in right hip; Z95.0 Presence of cardiac pacemaker; Z99.81 Dependence on supplemental oxygen; Z79.84 Long term (current) use of oral hypoglycemic drugs; Z90.710 Acquired absence of both cervix and uterus; Z79.51 Long term (current) use of inhaled steroids; Z98.49 Cataract extraction status, unspecified eye; Z87.440 Personal history of urinary (tract) infections; Z79.01 Long term (current) use of anticoagulants; Z79.899 Other long term (current) drug therapy; Z79.82 Long term (current) use of aspirin; Z87.442 Personal history of urinary calculi; Y92.009 Unspecified place in unspecified non-institutional (private) residence as the place of occurrence of the external cause; W01.0XXA Fall on same level from slipping, tripping and stumbling without subsequent striking against object, initial encounter
CPT/HCPCS: 36415; 36430; 70450; 71045; 80053; 81001; 82270; 82947; 84484; 85014; 85018; 85025; 85610; 85730; 86140; 86850; 86900; 86901; 86920; 86922; 99223; 99239; 99285; A9270-GY; J2470; J7030; P9016